=== PATIENT | female | born 1960 | race Caucasian/White ===

== ENCOUNTER 2022-10-24 09:05 | Outpatient (AMB) | payer OTHER, SELFPAY ==
--- NOTE | 2022-10-24 09:29 | HO.SPINEOV ---
Intake Intake Visit Reasons: injurry to L3-4 Intake Note: Mrs. Bartholomew is here today c/o low back pain due to injury. 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 History of present illness in May of 2022 she developed acute right hip pain radiating down her right leg and ankle after lifting a chair. She went to a chiropractor that had been treating her for neck problems and she started physical therapy. An x-ray showed an L3-4 spondylolisthesis for which she was referred to me. She reports incidental tingling at her bottom of her feet for 3 years. No weakness. No bowel urinary problems. The pain and down the right hip and leg is mostly gone. She is still on lifestyle modifications with restriction in sport and activities. She has residual tiredness in her back. Medical history: GERD Medications: Omeprazole, vitamin-D Allergies: NKDA Social history: Employed, . Nonsmoker Physical exam: Pleasant female. Ambulates without difficulties. Straight leg raise is negative. No pain on palpation of the lumbar spine. Motor exam, sensory exam and reflexes are symmetrically intact. No pathological reflexes. Radiologic studies: An x-ray of the lumbar spine shows a stable grade 1 L3-4 spondylolisthesis. An MRI of the lumbar spine done at [facility] on 08/13/2022 shows again the grade 1 L3-4 spondylolisthesis without nerve compression or spinal stenosis. More importantly, there is a disc herniation L4-5 compressing the right L5 nerve root. In summary, this patient was suffering from a right L5 lumbar radiculopathy due to an L4-5 disc herniation compressing the L5 nerve root. Fortunately, at this symptoms have mostly resolved and therefore surgical indication is not required. In my opinion, the L3-4 spondylolisthesis is an incidental finding and is not contributing to her symptoms. She has no restrictions. I spent 50 minutes in this consult for preparation, personal review of imaging and discussing the etiology of her disease and expectations. Thank you for the referral, David Langley MD, PhD Spine Fellowship Trained Neurosurgeon Director, [facility] Coding Level of Care Code New Pt Level 4 (08144) Diagnoses Lumbar disc herniation with radiculopathy M51.16 Spondylolisthesis, lumbar region M43.16
== END 2022-10-24 10:29 | disposition home or self-care (01) ==
PROVIDERS: PCP Psychiatry & Neurology Neurology; Visit Provider Neurological Surgery
DX: M51.16 Intervertebral disc disorders with radiculopathy, lumbar region (principal); M43.16 Spondylolisthesis, lumbar region
CPT/HCPCS: 99204

== ENCOUNTER → 2022-10-24 09:05 | Outpatient (BNVA) | payer OTHER, SELFPAY | PROVIDERS: PCP Psychiatry & Neurology Neurology; Visit Provider Neurological Surgery ==